=== PATIENT | female | born 1950 | race Caucasian/White ===

== ENCOUNTER 2017-12-10 19:06 | Emergency (ER) | payer OTHER ==
--- NOTE | 2017-12-10 19:15 | PDOC ---
Rapid Medical Evaluation Chief Complaint: Rash Time Seen by Provider: 12/10/17 19:13 Medical Evaluation: 12/10/17 19:13 c/o itchy rash x 20 days to right lower extremity. unsure of bug bite PE: + erythema to right lower extremity. petechial areas? likely from scratching A: erythema P: patient to fast track for further management. Discharge Disposition - Diagnosis Dermatitis - Referrals - Patient Instructions - Post Discharge Activity
[2017-12-10 19:17] VITALS: BP 132/73; PULSE 92; TEMP 99.3; BMI 23.2
--- NOTE | 2017-12-10 20:02 | PDOC ---
History of Present Illness - General Chief Complaint: Rash Stated Complaint: REDNESS TO AFFECTED AREA Time Seen by Provider: 12/10/17 19:13 - History of Present Illness Initial Comments: 67-year-old femal with past medical history significant for diabetes presents for evaluation of a rash which is been on her ankle for the last 20 days without any increasing symptoms. She is from out of town and was told to come to the emergency room by the urging of her primary care physician back in [place]. 12/10/17 19:58 Past History - Past Medical History Allergies/Adverse Reactions: Allergies Allergy/AdvReac Type Severity Reaction Status Date / Time No Known Allergies Allergy Verified 12/10/17 19:13 Home Medications: Ambulatory Orders Aspirin [ASA -] 81 mg PO DAILY 12/10/17 Lisinopril 20 mg PO BID 12/10/17 Metformin HCl [Glucophage] 500 mg PO BID 12/10/17 Sitagliptin Phosphate [Januvia] 50 mg PO DAILY 12/10/17 COPD: No Diabetes: Yes HTN: Yes - Suicide/Smoking/Psychosocial Hx Smoking History: Never smoked Have you smoked in the past 12 months: No Information on smoking cessation initiated: No Hx Alcohol Use: No Drug/Substance Use Hx: No Substance Use Type: None Review of Systems - Review of Systems Integumentary: Yes: Rash All Other Systems: Reviewed and Negative *Physical Exam - Vital Signs Last Vital Signs Temp Pulse Resp BP Pulse Ox 99.3 F 92 H 18 132/73 98 12/10/17 19:14 12/10/17 19:14 12/10/17 19:14 12/10/17 19:14 12/10/17 19:14 - Physical Exam Comments: There is a petechial area on the anterior oral aspect of the right ankle. There is no pain with passive motion. The rash is nonblanching. Nonpainful and nonpruritic. Normal skin temperature. The foot is warm and well perfused. There are no gross sensory or motor deficits. 12/10/17 19:59 Medical Decision Making - Medical Decision Making The petechial rash in a 67-year-old diabetic female which may be arterial however the foot is well perfused. I will for refer her to vascular surgery while she is in town. Further evaluation and treatment options. 12/10/17 20:00 *DC/Admit/Observation/Transfer Diagnosis at time of Disposition: Dermatitis - Discharge Dispostion Disposition: HOME Condition at time of disposition: Stable Decision to Admit order: No - Referrals Referrals: Arnaldo Mota MD [Staff Physician] - - Patient Instructions Additional Instructions: Your rash may be due to vascular disease from diabetes however your foot is well perfused and there is does not appear to be any emergency at this time. Follow-up with vascular surgery in the area in one to 2 days for further evaluation and treatment options. - Post Discharge Activity
== END 2017-12-10 20:12 | disposition home or self-care (01) ==
LOC: JERFT 19:06
DX: L30.9 Dermatitis, unspecified (principal); I10 Essential (primary) hypertension; E11.9 Type 2 diabetes mellitus without complications
CPT/HCPCS: 99281-25